=== PATIENT | female | born 1950 | race Caucasian/White ===

== ENCOUNTER → 2017-09-17 | Outpatient (CLI) | payer BC, SELFPAY ==
[~2017-09-17] MED LIST: ALBIPROI INH; ALBU90OI INH; ALPR1 PO; AMLO5 PO; ANTIBX; ASCO500 PO; ASPI325; ATOR20 PO; ATOR40TA PO; Alprazolam ER1 MG PO; Aspir 8181 MG PO; Augmentin 875-1 EACH PO; CALCA500CH PO; CARV25 PO; CEPH250A PO; CHRO200 PO; CITA20 PO; CLON.5; CLOP75; Co Q-10300 MG PO; Coreg25 MG PO; Crestor40 MG PO; DEXA4 PO; DOCU100 PO; ELIQUIS5 MG PO; ENOX100I; EZET10 PO; FENO160 PO; FLUSAL2505; GABA300 PO; HYDACE5; HYDMOR4 PO; HYDR1TAB94 PO; HYDROCODON-ACE1 EAC2 PO; LISI20; LISI5 PO; Lisinopril2.5 MG PO; METF500; METO100; METO100ER; MULVITMIND PO; NIFE30ER; NITR.4SL SL; Nitroglycerin0.4 MG SL; OLME20; OMEG1CAP30 PO; OMEPRAZOLE MAGN20 MG PO; OXYC1TAB11 PO; Omega 3 1,0001 EACH PO; PSYL5.85P PO; Pepto-Bismol262 MG PO; Prinivil10 MG PO; QUIN B STRONG1 EACH PO; ROSU5 PO; SIMV40 PO; SULTRIDS PO; TRICOR; TRIHYD253B; VALD20 PO; VITAMIN B12-FO1 EACH PO; WARF4 PO; WARF5 PO; Wellbutrin Sr200 MG PO; XARELTO15 MG PO; [UNRECOGNIZED DRUG - REMARK]; [UNRECOGNIZED DRUG - REMARK]
[2017-09-17 19:37] LABS: Protein, Urine Random 35.1 mg/dL (0.0-11.9)
== END | disposition home or self-care (01) ==
LOC: OLS 15:45
PROVIDERS: Internal Medicine
DX: N18.3 Chronic kidney disease, stage 3 (moderate) (principal)
CPT/HCPCS: 82570; 84156